=== PATIENT | female | born 1955 | race Caucasian/White ===

== ENCOUNTER → 2016-08-16 | Outpatient (CLI) | payer BC | LOC: BMCIMAGING 10:59 | PROVIDERS: ATTEND Internal Medicine Rheumatology | DX: M51.36 Other intervertebral disc degeneration, lumbar region (principal); M25.552 Pain in left hip ==

== ENCOUNTER → 2016-12-28 | Outpatient (CLI) | payer BC | LOC: FIMAGING 13:58 | PROVIDERS: ATTEND Physician Assistant | DX: E04.2 Nontoxic multinodular goiter (principal) ==

== ENCOUNTER 2017-01-29 12:12 | Emergency (ER) | payer BC ==
--- NOTE | 2017-01-29 13:03 | EDPHY ---
H & P Stated Complaint: cortisone spine inj 12 days ago has felt dizzy lightheaded and foggy since HPI/ROS: CHIEF COMPLAINT: Haziness HISTORY OF PRESENT ILLNESS: The patient is a 61 y/o female arriving with her family complaining of haziness for the last couple weeks. She attributes her symptoms to a cervical spine cortisone injection 12 days ago. She had a "cortisone flush" for a few days that resolved, but she began feeling oddly and noticed she was hypertensive around 150/90. She called Dr. Jorge, who performed her injection, and he recommended taking Benadryl. She describes her weird feeling as a "rushing, hazy feeling" with the sensation of a "racing heart " that feels like "I'm always in a haze and foggy." This weekend, 3 days ago, while at altitude during a [place] she began feeling near-syncopal. She ate a small bite of food then sat down and within 20 minutes she felt nauseated, but was able to eat some more. Since then, she's continued to feel hazy so she saw her PCP today and had labs done. While at that appointment she felt very lightheaded while taking deep breaths during the lung exam and was referred to the ED. She also notes her neck muscles feel tense, but this improves with Tylenol. REVIEW OF SYSTEMS: A ten point review of systems was performed and is negative with the exception of the items mentioned in the HPI. Past medical history: 1. Spinal arthritis 2. Spinal degeneration 3. Hypertension - 20mg QD lisinopril, hydrochlorothiazide, beta kolton 4. GERD - Pepcid Past surgical history: noncontributory Family history: noncontributory Social history: Family at bedside. . Lives in [place]. [facility]: Dr. Jorge General Appearance: Alert. Vital signs reviewed. Blood pressure 150/114. Eyes: Pupils equal and round, no conjunctival injection, no discharge. Anicteric. ENT, Mouth: Mucous membranes are moist, no oropharyngeal erythema or edema. Neck: No lymphadenopathy, supple. Respiratory: Lungs are clear to auscultation; no wheezes, rales, or rhonchi. Cardiovascular: Regular rate and rhythm; no murmur, rub, or gallop. Gastrointestinal: Abdomen is soft and nontender, no masses or organomegaly, bowel sounds normal. Skin: Warm and dry, no rashes on exposed skin, normal color. Back: Nontender to palpation over the thoracolumbar spine. No CVAT. Extremities: No lower extremity edema, no calf tenderness or swelling. Neurological: Alert and oriented. Moving all four extremities easily and equally. Cranial nerves II through XII are examined and are intact (visual acuity not tested). Strength is 5 over 5 bilaterally with testing of all major motor groups, but 4/5 with right hip extension from decreased effort due to pain. Sensation is intact to light touch over all 4 extremities. Deep tendon reflexes are 2+ in the biceps and knees bilaterally. Gait is normal. Finger-to -nose is performed accurately. Psychiatric: Normal affect. - Personal History Current Tetanus/Diphtheria Vaccine: Unsure - Medical/Surgical History Hx Asthma: No Hx Chronic Respiratory Disease: No Hx Diabetes: No Hx Cardiac Disease: No Hx Renal Disease: No Hx Cirrhosis: No Hx Alcoholism: No Hx HIV/AIDS: No Hx Splenectomy or Spleen Trauma: No Other PMH: htn - Social History Smoking Status: Never smoked Constitutional: Initial Vital Signs Temperature (C) 36.6 C 01/29/17 12:18 Heart Rate 93 01/29/17 12:18 Respiratory Rate 16 01/29/17 12:18 Blood Pressure 150/114 H 01/29/17 12:18 O2 Sat (%) 98 01/29/17 12:18 O2 Delivery Mode Room Air Allergies/Adverse Reactions: amoxicillin Allergy (Verified 01/29/17 12:16) Hives erythromycin base Allergy (Verified 01/29/17 12:16) Other-Enter Comments guaifenesin Allergy (Verified 01/29/17 12:16) Other-Enter Comments Penicillins Allergy (Verified 01/29/17 12:16) Hives Home Medications: Medication Instructions Recorded Famotidine 01/10/16 Lisinopril 01/10/16 Hydrochlorothiazide 01/29/17 Medical Decision Making ED Course/Re-evaluation: IV established. Labs drawn. Patient placed on information and referral director. She is noted to be hypertensive and I wonder if that is part of what she is feeling. Evaluation includes EKG and troponin--both WNL. No evidence of renal injury on BUN/creatinine. No headache. Normal neuro exam -- I do not think neuro -imaging is needed (no signs/sx of stroke).No urine obtained. I do not think she has hypertensive emergency/urgency. No evidence of end organ damage. I spoke with Dr. Jorge and explained patient's presentation. He does not think her signs/sx are related to the injection. Blood pressure at DC 155/78. I recommend FU with PCP (whom I was unable to reach). It is not clear to me what exactly has caused her to feel "hazy". I have not found immediate evidence of a serious or life threatening condition. I provided reassurance. The 12 lead EKG was interpreted by myself. See hard copy and/or "tracemaster" electronic copy for interpretation. Sinus rhythm, rate 86, no acute ischemic changes. - Data Points Laboratory Results: Laboratory Results 01/29/17 14:20 01/29/17 14:20 Departure - Departure Disposition: Home, Routine, Self-Care Clinical Impression: Hypertension Qualifiers: Hypertension type: essential hypertension Qualified Code(s): I10 - Essential ( primary) hypertension Condition: Good Instructions: Hypertension (ED) Additional Instructions: 1. Continue taking your hypertension medication as prescribed. 2. Follow up with your primary care provider this week or as scheduled for repeat BP check. 3. Return to the ED for severe headache, numbness or weakness on one side of your body, vision changes, or other worsening of condition. I have not found evidence of a serious or life threatening condition. Referrals: Antonella Hill PA [Primary Care Provider] - As per Instructions Report Scribed for: Lara Gordon Report Scribed by: Tanisha Jordan Date of Report: 01/29/17 Time of Report: 13:38 Physician Review and Approval Statement: 01/29/17 13:03 Portions of this note were transcribed by the medical insurance biller. I, Dr. Lara Gordon, personally performed the history, physical exam, and medical decision- making; and confirmed the accuracy of the information in the transcribed note.
--- NOTE | 2017-01-29 14:05 | CPEKG ---
Heart Rate: 84 RR Interval: 714 P-R Interval: 152 QRSD Interval: 82 QT Interval: 356 QTC Interval: 421 P [place]: 29 QRS [place]: -12 T Wave [place]: 28 EKG Severity - ABNORMAL ECG - EKG Impression: SINUS RHYTHM EKG Impression: NONSPECIFIC T ABNORMALITIES, LATERAL LEADS Electronically Signed By: Lara Gordon 29-Jan-2017 16:05:00
[2017-01-29 14:27] LABS: % IMMATURE GRANULYOCYTES 0.2 % (0.0-1.1); ABSOLUTE IMMATURE GRANULOCYTES 0.02 10^3/uL (0.00-0.10); ADD DIFF? NO; ADD MORPH? NO; ADD SCAN? NO; ATYPICAL LYMPHOCYTE FLAG 0 (0-99); FRAGMENT RBC FLAG 0 (0-99); HEMATOCRIT 43.7 % (38.0-47.0); HEMOGLOBIN 14.9 g/dL (12.6-16.3); LEFT SHIFT FLG 0 (0-99); LIPEMIA HEMOLYSIS FLAG 90 (0-99); MEAN CELL HEMOGLOBIN 28.5 pg (27.9-34.1); MEAN CELL HEMOGLOBIN CONCENTR. 34.1 g/dL (32.4-36.7); MEAN CELL VOLUME 83.6 fL (81.5-99.8); MEAN PLATELET VOLUME 9.2 fL (8.7-11.7); PLATELET CLUMPS FLAG 0 (0-99); PLATELET COUNT 365 10^3/uL (150-400); RED BLOOD CELL COUNT 5.23 10^6/uL (4.18-5.33); RED CELL DISTRIBUTION WIDTH 12.9 % (11.5-15.2)
[2017-01-29 14:39] LABS: ANION GAP 13 mEq/L (8-16); CALCIUM 10.2 mg/dL (8.5-10.4); CARBON DIOXIDE 25 mEq/l (22-31); CHLORIDE 98 mEq/L (97-110); CREATININE 0.9 mg/dL (0.6-1.0); GLOMERULAR FILTRATION RATE > 60; GLUCOSE 102 mg/dL (70-100); POTASSIUM 3.9 mEq/L (3.5-5.2); SODIUM 136 mEq/L (134-144)
[2017-01-29 14:52] LABS: TROPONIN I < 0.012 ng/mL (0.000-0.034)
[2017-01-29 16:17] VITALS: BP 155/78; PULSE 81; RESP 16; TEMP 98.6; O2SAT 98
== END 2017-01-29 16:17 | disposition home or self-care (01) ==
DX: I10 Essential (primary) hypertension (principal)

== ENCOUNTER 2017-10-14 11:43 | Day surgery (SDC) | payer BC, OTHER ==
[2017-10-14] MEDS ORDERED: LR 1,000 ML IV ONE (11:53)
[2017-10-14] MEDS ORDERED: LIDOCAINE 1% 2 ML INJ ID PRN (11:53)
--- NOTE | 2017-10-14 13:08 | PDANEPAE ---
ANE History of Present Illness EGD ANE Past Medical History - Cardiovascular History Hx Hypertension: Yes Hx Arrhythmias: No Hx Chest Pain: No Hx Coronary Artery / Peripheral Vascular Disease: No Hx CHF / Valvular Disease: No Hx Palpitations: No Cardiovascular History Comment: pcp monitors bp medications - Pulmonary History Hx COPD: No Hx Asthma/Reactive Airway Disease: No Hx Recent Upper Respiratory Infection: No Hx Oxygen in Use at Home: No Hx Sleep Apnea: No Sleep Apnea Screening Result - Last Documented: Positive - Neurologic History Hx Cerebrovascular Accident: No Hx Seizures: No Hx Dementia: No - Endocrine History Hx Diabetes: No - Renal History Hx Renal Disorders: No - Liver History Hx Hepatic Disorders: No - Neurological & Psychiatric Hx Hx Neurological and Psychiatric Disorders: No - Cancer History Hx Cancer: No - Congenital Disorder History Hx Congenital Disorders: Yes Congenital History Comment: arthritis father side - GI History Hx Gastrointestinal Disorders: Yes Gastrointestinal History Comment: reflux. colonoscopy 11/10/15. 2016 colonoscopy had some post procedure abd pain - Other Health History Other Health History: right ear debrox for wax buildup. dental implants - Chronic Pain History Chronic Pain: Yes (lower back,neck) - Surgical History Prior Surgeries: hysterectomy. x2. skin grafts from [facility] at 8 yo ANE Review of Systems Review of Systems: - Exercise capacity Exercise capacity: >=4 METS METS (RN): 4 METS ANE Patient History - Allergies Allergies/Adverse Reactions: amoxicillin Allergy (Verified 10/04/17 14:29) Hives erythromycin base Allergy (Verified 10/04/17 14:29) Other-Enter Comments guaifenesin Allergy (Verified 10/04/17 14:29) Other-Enter Comments Penicillins Allergy (Verified 10/04/17 14:29) Hives - Home Medications Home Medications: Famotidine 01/10/16 [Last Taken 10/14/17 07:00] Lisinopril 01/10/16 [Last Taken 10/14/17 07:00] Celebrex 10/04/17 [Last Taken 1 Month Ago ~09/13/17] Tylenol 10/04/17 [Last Taken 10/13/17] - NPO status NPO Since - Liquids (Date): 10/14/17 NPO Since - Liquids (Time): 03:00 NPO Since - Solids (Date): 10/13/17 NPO Since - Solids (Time): 21:00 - Smoking Hx Smoking Status: Former smoker - Family Anes Hx Family Hx Anesthesia Complications: none ANE Labs/Vital Signs - Vital Signs Blood Pressure: 156/94 Heart Rate: 92 Respiratory Rate: 16 O2 Sat (%): 94 Height: 162.56 cm Weight: 99.79 kg ANE Physical Exam - Airway Neck exam: FROM Mallampati Score: Class 2 Mouth exam: normal dental/mouth exam - Pulmonary Pulmonary: clear to auscultation - Cardiovascular Cardiovascular: regular rate and rhythym - ASA Status ASA Status: II ANE Anesthesia Plan Anesthesia Plan: general endotracheal anesthesia
[2017-10-14] MEDS ORDERED: ALBUTEROL 3 ML DEYVIAL IH PRN (13:10)
[2017-10-14] MEDS ORDERED: NALOXONE HCL 0.4 MG/ML INJ IVP PRN (13:10)
[2017-10-14] MEDS ORDERED: ONDANSETRON 4 MG/2 ML VIAL IVP PRN (13:10)
[2017-10-14] MEDS ORDERED: PROPOFOL/EMULSION 500 MG/50 ML BOTTLE IV ONE (13:13)
[2017-10-14] MEDS ORDERED: LIDOCAINE 2% 5 ML SDV ONE (13:14)
--- NOTE | 2017-10-14 13:34 | POSTANESTH ---
Post Anesthetic Evaluation Cardiovascular Status: Normal, Stable Respiratory Status: Normal, Stable Level of Consciousness/Mental Status: Can Participate in Eval, Mildly Sleepy, Arousable Pain Control: Adequate, Prn Tx Ordered Nausea/Vomiting Control: Adequate, Prn Tx Ordered Complications Possibly Related to Anesthesia: None Noted
--- NOTE | 2017-10-14 13:34 | GIREPORT ---
[facility] Surgical Services - Endoscopy Department Patient Name: Angie Snell Procedure Date: 10/14/2017 1:03 PM Patient Type: Outpatient Attending MD/ ER Physician: Amado Gloria MD Procedure: Upper GI endoscopy Indications: Follow-up of precancerous lesions of the duodenum Patient Profile: 62 year old female presents for surveillance of a complex duodenal yuli lisbeth. Providers: Amado Gloria MD Medicines: Monitored Anesthesia Care Complications: No immediate complications. Estimated blood loss: Minimal. Description of Procedure: After obtaining informed consent, the endoscope was passed under direct vision. Throughout the procedure, the patient's blood pressure, pulse, and oxygen saturations were monitored continuously. The Endoscope was intro duced through the mouth, and advanced to the second part of duodenum. The [facility] endoscopy was accomplished without difficulty. The patient tolerated e procedure well. Findings: The examined esophagus was normal. A large hiatal hernia was present. Multiple small sessile polyps were found on the greater curvature of th e stomach. Biopsies were taken with a cold forceps for histology. A few diminutive sessile polyps were found in the second portion of the duodenum close to the prior tattoo maximo. it was unsure whether this was a polyp versus just nodular mucosa. Biopsies were taken with a cold force ps for histology. Estimated Blood Loss: Estimated blood loss was minimal. Post Op Diagnosis: - Normal esophagus. - Large hiatal hernia. - Multiple gastric polyps. Biopsied. - A few duodenal polyps versus nodular mucosa. Biopsied. Recommendation: - Discharge patient to home (with escort). - Resume previous diet. - Continue present medications. - Repeat upper endoscopy in 2 years for surveillance. - Await pathology results. - Thank you for allowing me to participate in the care of your patient. Attending Participation: I personally performed the entire procedure. Amado Gloria MD Amado Gloria MD 10/14/2017 1:34:40 PM This report has been signed electronicallyAmado Gloria MD Number of Addenda: 0 Note Initiated On: 10/14/2017 1:03 PM [email or web address]
[2017-10-14] MEDS ORDERED: INDOMETHACIN 50 MG SUPP PR PRN (13:38)
--- NOTE | 2017-10-14 13:38 | PDGENHP ---
History & Physical Chief Complaint: duodenal polyps History of Present Illness: 62 year old female presents for surveillance of a duodenal polyp Pertinent Past, Social, Family History: PMHx: HTN Relevant Physical Exam: HEENT: anicteric. CV; RRR +s1s2. Lungs: CTAB. Abd: soft, nt, +BS Cardiorespiratory Assessment: ASA 2
[2017-10-14] MEDS ORDERED: NS 500 ML IV SCH (13:45)
[2017-10-14 14:55] VITALS: BP 146/96
== END 2017-10-14 15:00 | disposition home or self-care (01) ==
LOC: FSGY 11:43
PROVIDERS: ATTEND Internal Medicine Gastroenterology
PROC: 0DB68ZX Excision of Stomach, Via Natural or Artificial Opening Endoscopic, Diagnostic (ICD-10-PCS; principal; 2017-10-14 13:15)
PROC: 0DB98ZX Excision of Duodenum, Via Natural or Artificial Opening Endoscopic, Diagnostic (ICD-10-PCS; principal; 2017-10-14 13:15)
DX: K31.7 Polyp of stomach and duodenum (principal); K44.9 Diaphragmatic hernia without obstruction or gangrene
CPT/HCPCS: J2704

== ENCOUNTER → 2018-07-08 | Outpatient (CLI) | payer OTHER | LOC: FIMAGING 13:05 | PROVIDERS: ATTEND Physician Assistant | DX: E04.1 Nontoxic single thyroid nodule (principal) ==

== ENCOUNTER → 2018-10-16 | Outpatient (CLI) | payer OTHER | LOC: FIMAGING 09:31 ==